=== PATIENT | female | born 1955 | race Caucasian/White ===

== ENCOUNTER 2018-09-18 13:57 | Emergency (ER) | payer OTHER ==
[~2018-09-18] VITALS: Wt 68.0 kg
[~2018-09-18 13:57] MED LIST: ENAL20TA PO
[2018-09-18] MEDS ORDERED: HYDROCODONE/APAP (5/325) TAB PO ONE (17:00)
[2018-09-18] MEDS ORDERED: CYCL10TA7 PO (18:02)
[2018-09-18] MEDS ORDERED: IBUP-1561 PO (18:02)
[2018-09-18 18:25] VITALS: BP 154/78; PULSE 77; RESP 17
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
== END 2018-09-18 18:26 | disposition home or self-care (01) ==
LOC: FTE 13:57
DX: S13.4XXA Sprain of ligaments of cervical spine, initial encounter (principal); V49.50XA Passenger injured in collision with unspecified motor vehicles in traffic accident, initial encounter
CPT/HCPCS: 71045; 72125; 73110; Z7610